=== PATIENT | female | born 1945 | race Caucasian/White ===

== ENCOUNTER 2017-04-10 06:48 | Day surgery (SDC) | payer OTHER ==
[~2017-04-10] VITALS: Ht 162.6 cm; Wt 68.0 kg
[~2017-04-10 06:48] MED LIST: DAILY MULTIPLE1 EACH PO; DILANTIN30 MG PO; EXCEDRIN EXTRA1 EACH PO; PREVACID30 MG PO
[2017-04-10 07:18] VITALS: BP 176/96
[2017-04-10 10:10] VITALS: BP 155/83
[2017-04-10 10:43] VITALS: BP 169/99
== END 2017-04-10 10:51 | disposition home or self-care (01) ==
LOC: SDC 06:48
DX: H43.392 Other vitreous opacities, left eye (principal); H33.312 Horseshoe tear of retina without detachment, left eye; K21.9 Gastro-esophageal reflux disease without esophagitis; Z79.82 Long term (current) use of aspirin; Z87.891 Personal history of nicotine dependence; I45.10 Unspecified right bundle-branch block
CPT/HCPCS: J0690; J3300